=== PATIENT | male | born 2000 | race Caucasian/White ===

== ENCOUNTER 2019-05-29 00:05 | Emergency (ER) | payer SELFPAY ==
[~2019-05-29] VITALS: Ht 165.1 cm; Wt 67.3 kg
[2019-05-29 00:13] VITALS: Ht 165.1 cm; Wt 67.3 kg
[2019-05-29 02:26] VITALS: BP 117/56
== END 2019-05-29 02:26 | disposition home or self-care (01) ==
LOC: ED 00:05
DX: J45.909 Unspecified asthma, uncomplicated (principal)
CPT/HCPCS: J7512